=== PATIENT | male | born 1985 | race American Indian/Alaskan Native ===

== ENCOUNTER 2020-09-24 16:24 | Emergency (ER) | payer BC ==
--- NOTE | 2020-09-24 17:00 | Event Note ---
ED Screening Note ED Screening Note: CP and SOB that began in june but has worsened in the last couple of days states that the it spreads around the chest but is currently in the subternal region states it is worse with movement and worse with pressure states that he gets pain in his left arm no fever no n/v/d no cough no swelling states he had COVID 19 on aug 21 was in [place], [place] at that time states he went to a housekeeper manager in June and had a stress test and echo, states "there were no concerning findings" hx of HTN states he takes amlodipine, metoprolol, and 81 mg of aspirin states he was changed last week from amlodipine to lorsatan by his housekeeper manager and has been feeling "sick since then" states his housekeeper manager his in [facility] no allergies to meds This initial assessment/diagnostic orders/clinical plan/treatment(s) is/are subject to change based on patients health status, clinical progression and re- assessment by fellow clinical providers in the ED. Further treatment and workup at subsequent clinical providers discretion. Patient/guardian urged not to elope from the ED as their condition may be serious if not clinically assessed and managed. Initial orders include: CP protocol
--- NOTE | 2020-09-24 17:45 | XRay Report ---
CHEST 2 VIEWS INDICATION / CLINICAL INFORMATION: Chest Pain. Shortness of breath. History of Covid 19 1 month ago. COMPARISON: None available. FINDINGS: SUPPORT DEVICES: None. HEART / MEDIASTINUM: No significant abnormality. LUNGS / PLEURA: Clear lungs. No significant pleural effusion. No pneumothorax. ADDITIONAL FINDINGS: No significant additional findings. IMPRESSION: 1. No acute abnormality of the chest. Signer Name: Justyn Wooten MD Signed: 09/24/2020 5:41 PM Workstation Name: [id number]
[2020-09-24 17:57] LABS: Basophils # (Auto) 0.1 K/mm3 (0.0-0.1); Basophils % (Auto) 0.6 % (0.0-1.8); Eosinophils # (Auto) 0.1 K/mm3 (0.0-0.4); Eosinophils % (Auto) 0.8 % (0.0-4.3); Hematocrit 45.4 % (35.5-45.6); Hemoglobin 15.6 gm/dl (11.8-15.2); Lymphocytes # (Auto) 3.6 K/mm3 (1.2-5.4); Lymphocytes % (Auto) 39.3 % (13.4-35.0); Mean Corpuscular HGB Conc 34 % (32-34); Mean Corpuscular Volume 100 fl (84-94); Monocytes # (Auto) 1.2 K/mm3 (0.0-0.8); Monocytes % (Auto) 12.8 % (0.0-7.3); Platelet Count 198 K/mm3 (140-440); Red Blood Count 4.56 M/mm3 (3.65-5.03)
[2020-09-24] MEDS ORDERED: ACETAMINOPHEN 500 MG TAB PO ONE (18:15)
[2020-09-24] MEDS ORDERED: FAMOTIDINE 20 MG TAB PO ONE (18:15)
[2020-09-24] MEDS ORDERED: IBUPROFEN 400 MG TAB PO ONE (18:15)
[2020-09-24 18:18] LABS: Alanine Aminotransferase 43 units/L (7-56); Albumin 4.1 g/dL (3.9-5); BUN/Creatinine Ratio 20; Blood Urea Nitrogen 16 mg/dL (9-20); Calcium 9.2 mg/dL (8.4-10.2); Hemolysis Index 10
--- NOTE | 2020-09-24 18:22 | Emergency Department Report ---
ED General Adult HPI - General Chief complaint: Chest Pain Stated complaint: CHEST PAIN/SOB PUI?: No Time Seen by Provider: 09/24/20 16:50 Source: patient, RN notes reviewed Mode of arrival: Ambulatory Limitations: No Limitations - History of Present Illness Initial comments: The patient was evaluated in the emergency department for symptoms described in the history of present illness. He/she was evaluated in the context of the global COVID-19 pandemic, which necessitated consideration that the patient might be at risk for infection with the virus that causes COVID-19. Institutional protocols and algorithms that pertain to the evaluation of patients at risk for COVID-19 are in a state of rapid change based on informati on released by regulatory bodies including the CDC and federal and state organizations. These policies and algorithms were followed during the patient's care in the emergency department. Please note that these policies, procedures and recommendations changed on a rapid basis. The patient is a 35-year-old gentleman. He is not known to myself previously. He has a history of hypertension. He was reportedly seen by a local prism inspector in [facility], where he lives, where he reports having had a negative stress test and unremarkable echocardiogram. The patient presents today with a complaint of nontraumatic chest pain and shortness of breath. The symptoms have been present intermittently since June. Sometimes the chest pain is left-sided, sometimes it is right-sided, today it is epigastric. This pain has been present for a few days. It does not radiate to the back, arms or neck. There is no vomiting diaphoresis. The shortness of breath is not exertional. He reports he was diagnosed with COVID-19 in the beginning of August, and then had a negative test towards the middle of August. He denies headache, neck pain, abdominal pain. He endorses subjective left arm traumatic area hyperpigmentation on the left volar aspect of his forearm. This is new over the past couple weeks. He takes aspirin on a daily basis. He came to [place] because his family "wanted to see me, and get checked out." -: Gradual, week(s), month(s) Location: chest, left, upper extremity Radiation: non-radiation Severity scale (0 -10): 8 Quality: aching Consistency: intermittent Improves with: none Worsens with: none - Related Data Previous Rx's Medication Instructions Recorded Last Taken Type Acetaminophen [Non-Aspirin Extra 500 mg PO Q6HR PRN #30 tablet 09/24/20 Unknown Rx Strength] Aspirin [Aspirin BABY CHEW TAB] 81 mg PO QDAY #30 tab.chew 09/24/20 Unknown Rx Famotidine [Pepcid] 20 mg PO BID #60 tablet 09/24/20 Unknown Rx Ibuprofen [Motrin] 400 mg PO Q8H PRN #30 tablet 09/24/20 Unknown Rx Allergies Allergy/AdvReac Type Severity Reaction Status Date / Time No Known Allergies Allergy Unverified 09/24/20 16:45 ED Review of Systems ROS: Stated complaint: CHEST PAIN/SOB Other details as noted in HPI Constitutional: denies: fever, malaise, weakness Eyes: denies: eye discharge ENT: denies: congestion Respiratory: shortness of breath. denies: cough Cardiovascular: chest pain Gastrointestinal: denies: abdominal pain, nausea, vomiting, hematemesis, melena, hematochezia Musculoskeletal: myalgia Skin: rash, lesions Neurological: weakness Hematological/Lymphatic: denies: easy bleeding ED Past Medical Hx - Past Medical History Previous Medical History?: Yes Hx Hypertension: Yes - Surgical History Past Surgical History?: No - Social History Smoking Status: Never Smoker Substance Use Type: None - Medications Home Medications: Home Medications Medication Instructions Recorded Confirmed Last Taken Type Acetaminophen [Non-Aspirin Extra 500 mg PO Q6HR PRN #30 tablet 09/24/20 Unknown Rx Strength] Aspirin [Aspirin BABY CHEW TAB] 81 mg PO QDAY #30 tab.chew 09/24/20 Unknown Rx Famotidine [Pepcid] 20 mg PO BID #60 tablet 09/24/20 Unknown Rx Ibuprofen [Motrin] 400 mg PO Q8H PRN #30 tablet 09/24/20 Unknown Rx ED Physical Exam - General Limitations: No Limitations General appearance: alert, in no apparent distress - Head Head exam: Present: atraumatic, normocephalic - Eye Eye exam: Present: normal appearance, EOMI. Absent: nystagmus - ENT ENT exam: Present: normal exam, normal orophraynx, mucous membranes moist, normal external ear exam - Neck Neck exam: Present: normal inspection, full ROM. Absent: tenderness, meningismus - Respiratory Respiratory exam: Present: normal lung sounds bilaterally. Absent: respiratory distress, wheezes, rales, rhonchi, stridor, decreased breath sounds - Cardiovascular Cardiovascular Exam: Present: regular rate, normal rhythm, normal heart sounds. Absent: bradycardia, tachycardia, irregular rhythm, systolic murmur, diastolic murmur, rubs, gallop - GI/Abdominal GI/Abdominal exam: Present: soft, normal bowel sounds. Absent: distended, tenderness, guarding, rebound, rigid, pulsatile mass - Rectal Rectal exam: Present: deferred - Extremities Exam Extremities exam: Present: normal inspection (There is a nontender oval-shaped m acule noted, nonblanching, on the proximal volar left forearm.), full ROM, other (2+ pulses noted in the bilateral upper and lower extremities. There is no palpable cord. negative Homans sign. Muscular compartments are soft. The pelvis is stable.). Absent: pedal edema, calf tenderness - Back Exam Back exam: Present: normal inspection. Absent: tenderness, CVA tenderness (R), CVA tenderness (L), paraspinal tenderness, vertebral tenderness - Neurological Exam Neurological exam: Present: alert, other (No facial droop. Tongue midline. Extraocular movements intact bilaterally. Facial sensation intact to light t ouch in V1, V2, V3 distribution bilaterally. 5 and a 5 strength in 4 extremities. Sensation intact to light touch in 4 extremities.). Absent: motor sensory deficit - Psychiatric Psychiatric exam: Present: normal affect, normal mood - Skin Skin exam: Present: warm, dry, intact, other (Nontender nonblanching macule note d on the left volar proximal forearm, and left lower quadrant anterior abdominal wall) ED Course Vital Signs 09/24/20 09/24/20 09/24/20 16:45 17:51 18:45 Temperature 98.4 F Pulse Rate 84 69 78 Respiratory 18 18 16 Rate Blood Pressure 115/77 Blood Pressure 130/79 121/83 [Right] O2 Sat by Pulse 97 98 98 Oximetry 09/24/20 19:00 Temperature 98.3 F Pulse Rate 68 Respiratory 18 Rate Blood Pressure Blood Pressure 129/84 [Right] O2 Sat by Pulse 100 Oximetry - Reevaluation(s) Reevaluation #1: 09/24/20 18:21 Differential diagnosis, including but not limited to: GERD, gastritis, hiatal hernia, pneumonia, coronary artery disease, pulmonary embolism, Covid cardiomyopathy, Covid lung Assessment and plan: 35-year-old gentleman, who is not currently tachycardic, tachypneic or hypoxic, who denies DVT and pulmonary embolism risk factors, who is low risk by Wells criteria for pulmonary embolism, PERC negative, complaint of chest pain since June. Given propensity for Covid to cause thromboembolic symptomatology, and left axis deviation with LAFB on EKG, we will send D-dimer to risk ratified for pulmonary embolism, although I find the patient to be low pretest probability. Patient has equal pulses in the upper and lower extremities, no pulsatile abdominal mass, and an unremarkable x-ray of the chest, therefore, aortic disease is very unlikely. Patient at low risk for major adverse cardiac event as per heart score. Given history and physical, do not have a high suspicion for GERD, gastritis, hiatal hernia at this time. Pneumonia is unlikely given history, physical, I find coronary artery disease of significance to be unlikely. As per this institutions policy, procedure, protocol, patient's information is transmitted to [facility] cardiology, whereby patient should be contacted within the next 2 days to arrange close outpatient follow-up We will also treat the patient's symptoms and reassess once his initial data points have resulted. Reevaluation #2: 09/24/20 20:23 Troponin negative x2. EKG unchanged x2. D-dimer negative. Chest x-ray unremarkable. Patient resting comfortably and in no acute distress. Counseled patient on significance of findings, we recommended follow-up with an outpatient primary care doctor or prism inspector. He has verbalized understanding. ED Medical Decision Making - Lab Data Result diagrams: 09/24/20 17:35 09/24/20 17:35 Lab Results 09/24/20 09/24/20 09/24/20 Range/Units 17:35 17:35 17:35 WBC 9.1 (4.5-11.0) K/mm3 RBC 4.56 (3.65-5.03) M/mm3 Hgb 15.6 H (11.8-15.2) gm/dl Hct 45.4 (35.5-45.6) % MCV 100 H (84-94) fl MCH 34 H (28-32) pg MCHC 34 (32-34) % RDW 15.0 (13.2-15.2) % Plt Count 198 (140-440) K/mm3 Lymph % (Auto) 39.3 H (13.4-35.0) % Kidder % (Auto) 12.8 H (0.0-7.3) % Eos % (Auto) 0.8 (0.0-4.3) % Baso % (Auto) 0.6 (0.0-1.8) % Lymph # (Auto) 3.6 (1.2-5.4) K/mm3 Kidder # (Auto) 1.2 H (0.0-0.8) K/mm3 Eos # (Auto) 0.1 (0.0-0.4) K/mm3 Baso # (Auto) 0.1 (0.0-0.1) K/mm3 Seg Neutrophils % 46.5 (40.0-70.0) % Seg Neutrophils # 4.3 (1.8-7.7) K/mm3 Sodium 137 (137-145) mmol/L Potassium 4.4 (3.6-5.0) mmol/L Chloride 102.9 (98-107) mmol/L Carbon Dioxide 29 (22-30) mmol/L Anion Gap 10 mmol/L BUN 16 (9-20) mg/dL Creatinine 0.8 (0.8-1.3) mg/dL Estimated GFR > 60 ml/min BUN/Creatinine Ratio 20 % Glucose 98 (75-100) mg/dL Calcium 9.2 (8.4-10.2) mg/dL Total Bilirubin 0.30 (0.1-1.2) mg/dL AST 14 (5-40) units/L ALT 43 (7-56) units/L Alkaline Phosphatase 78 (35-129) units/L Troponin T < 0.010 (0.00-0.029) ng/mL NT-Pro-B Natriuret Pep 83.25 (0-450) pg/mL Total Protein 7.0 (6.3-8.2) g/dL Albumin 4.1 (3.9-5) g/dL Albumin/Globulin Ratio 1.4 % Lab Results 09/24/20 09/24/20 09/24/20 Range/Units 17:35 17:35 17:35 WBC 9.1 (4.5-11.0) K/mm3 RBC 4.56 (3.65-5.03) M/mm3 Hgb 15.6 H (11.8-15.2) gm/dl Hct 45.4 (35.5-45.6) % MCV 100 H (84-94) fl MCH 34 H (28-32) pg MCHC 34 (32-34) % RDW 15.0 (13.2-15.2) % Plt Count 198 (140-440) K/mm3 Lymph % (Auto) 39.3 H (13.4-35.0) % Kidder % (Auto) 12.8 H (0.0-7.3) % Eos % (Auto) 0.8 (0.0-4.3) % Baso % (Auto) 0.6 (0.0-1.8) % Lymph # (Auto) 3.6 (1.2-5.4) K/mm3 Kidder # (Auto) 1.2 H (0.0-0.8) K/mm3 Eos # (Auto) 0.1 (0.0-0.4) K/mm3 Baso # (Auto) 0.1 (0.0-0.1) K/mm3 Seg Neutrophils % 46.5 (40.0-70.0) % Seg Neutrophils # 4.3 (1.8-7.7) K/mm3 Sodium 137 (137-145) mmol/L Potassium 4.4 (3.6-5.0) mmol/L Chloride 102.9 (98-107) mmol/L Carbon Dioxide 29 (22-30) mmol/L Anion Gap 10 mmol/L BUN 16 (9-20) mg/dL Creatinine 0.8 (0.8-1.3) mg/dL Estimated GFR > 60 ml/min BUN/Creatinine Ratio 20 % Glucose 98 (75-100) mg/dL Calcium 9.2 (8.4-10.2) mg/dL Total Bilirubin 0.30 (0.1-1.2) mg/dL AST 14 (5-40) units/L ALT 43 (7-56) units/L Alkaline Phosphatase 78 (35-129) units/L Troponin T < 0.010 (0.00-0.029) ng/mL NT-Pro-B Natriuret Pep 83.25 (0-450) pg/mL Total Protein 7.0 (6.3-8.2) g/dL Albumin 4.1 (3.9-5) g/dL Albumin/Globulin Ratio 1.4 % - EKG Data -: EKG Interpreted by Ok EKG shows normal: sinus rhythm Rate: normal - EKG Data When compared to previous EKG there are: previous EKG unavailable 09/24/20 18:22 Sinus rhythm, 77 bpm. Left axis deviation, left anterior fascicular block. High left ventricular voltage. Intervals within normal limits. This is an abnormal EKG. This is not a STEMI. - Radiology Data Radiology results: pending, report reviewed, image reviewed Critical care attestation.: If time is entered above; I have spent that time in minutes in the direct care of this critically ill patient, excluding procedure time. ED Disposition Clinical Impression: Chronic chest pain, Dyspnea, History of COVID-19 Disposition: - TO HOME OR SELFCARE Is pt being admited?: No Does the pt Need Aspirin: No Condition: Good Instructions: Chest Pain (ED), Nonspecific Chest Pain, Adult, Shortness of Breath, Adult, COVID-19 Additional Instructions: Please continue current outpatient medications. Please follow-up with a primary care doctor or prism inspector within the next [address] Perez Is a local primary care doctor. Dr. Oscar is a local prism inspector. Patient may follow-up with an outpatient life scientists, such as Dr. Eckert, Within the next 4 to 6 weeks, or an outpatient primary care doctor for his complaint of shortness of breath. Patient may take the prescribed pain medications as needed and directed. Please return to the emergency room right away with new pain, worsened pain, migration of pain, projectile vomiting, change in mental status, confusion, inability to tolerate liquid feeds, new, worsened or different symptoms not present on the initial emergency room evaluation. Referrals: LEONARDO PEREZ MD [Staff Physician] - 3-5 Days ANNELISE ECKERT MD [Staff Physician] - 3-5 Days DANIEL CATES MD [Staff Physician] - 3-5 Days Forms: Work/School Release Form(ED) Heart Score - HEART Score History: Slightly suspicious EKG: Non-specific Age: < 45 Risk factors: 1-2 risk factors Troponin: < normal limit HEART Score: 2 - Critical Actions Critical Actions: 0-3 pts:0.9-1.7%risk of adverse cardiac event.Candidate for discharge
[2020-09-24 19:47] VITALS: BP 129/84
== END 2020-09-24 20:35 | disposition home or self-care (01) ==
LOC: ED 16:24
DX: R07.89 Other chest pain (principal); Z20.822 Contact with and (suspected) exposure to COVID-19; R06.00 Dyspnea, unspecified; I10 Essential (primary) hypertension; Z79.1 Long term (current) use of non-steroidal anti-inflammatories (NSAID); Z79.899 Other long term (current) drug therapy
CPT/HCPCS: 36415; 71046; 80053; 82550; 83735; 83880; 84484; 85025; 85379; 93005

== ENCOUNTER 2020-11-06 08:26 | Emergency (ER) | payer BC ==
[2020-11-06] MEDS ORDERED: ASPIRIN 325 MG TAB PO ONE (08:50)
--- NOTE | 2020-11-06 09:19 | XRay Report ---
CHEST 2 VIEWS INDICATION / CLINICAL INFORMATION: cp. COMPARISON: 09/24/2020 FINDINGS: SUPPORT DEVICES: None. HEART / MEDIASTINUM: No significant abnormality. LUNGS / PLEURA: No significant pulmonary or pleural abnormality. No pneumothorax. ADDITIONAL FINDINGS: No significant additional findings. IMPRESSION: 1. No acute findings. Signer Name: Arnaldo Cali MD Signed: 11/06/2020 9:14 AM Workstation Name: [id number]
--- NOTE | 2020-11-06 09:23 | Emergency Department Report ---
ED Chest Pain HPI - General Chief Complaint: Chest Pain Stated Complaint: CHEST PAIN/SOB Time Seen by Provider: 11/06/20 09:07 Source: patient Mode of arrival: Ambulatory Limitations: No Limitations - History of Present Illness Initial Comments: 35-year-old male, history of hypertension, presents to ED with chest pain. Patient states chest pain has been off and on since June 2020. Patient states he has had multiple ED visits, seeing a optical instrument assembly supervisor and also a cage operator since that time. Patient reports work-ups have always been negative. Patient states he had a normal echo, negative stress test. Patient states he had a "walking test "when he was seen by the cage operator and that too was normal. Patient reports he had COVID-19 in August 2020. Patient reports pain is sharp in nature, located in upper left chest wall, also with sha rp pain in the left arm as well. He also reports shortness of breath last night. Patient states chest pain worse over the past week. Occurs at rest. Patient denies any leg swelling, fever, cough nausea or vomiting, diaphoresis. MD Complaint: chest pain -: month(s) (4) Onset: during rest Pain Location: left chest Pain Radiation: LUE Severity: moderate Quality: sharp Consistency: intermittent Improves With: nothing Worsens With: nothing re: dyspnea. denies: nausea, vomting, diaphoresis Other Symptoms: denies: cough, fever, syncope, leg swelling Treatments Prior to Arrival: none - Related Data Previous Rx's Medication Instructions Recorded Last Taken Type Acetaminophen [Non-Aspirin Extra 500 mg PO Q6HR PRN #30 tablet 09/24/20 Unknown Rx Strength] Aspirin [Aspirin BABY CHEW TAB] 81 mg PO QDAY #30 tab.chew 09/24/20 Unknown Rx Famotidine [Pepcid] 20 mg PO BID #60 tablet 09/24/20 Unknown Rx Ibuprofen [Motrin] 400 mg PO Q8H PRN #30 tablet 09/24/20 Unknown Rx Allergies Allergy/AdvReac Type Severity Reaction Status Date / Time No Known Allergies Allergy Unverified 09/24/20 16:45 Heart Score - HEART Score History: Slightly suspicious EKG: Normal Age: < 45 Risk factors: 1-2 risk factors Troponin: < normal limit HEART Score: 1 ED Review of Systems ROS: Stated complaint: CHEST PAIN/SOB Other details as noted in HPI Comment: All other systems reviewed and negative Constitutional: denies: chills, fever Respiratory: shortness of breath. denies: cough Cardiovascular: chest pain ED Past Medical Hx - Past Medical History Hx Hypertension: Yes - Surgical History Past Surgical History?: No - Social History Smoking Status: Never Smoker Substance Use Type: None - Medications Home Medications: Home Medications Medication Instructions Recorded Confirmed Last Taken Type Acetaminophen [Non-Aspirin Extra 500 mg PO Q6HR PRN #30 tablet 09/24/20 Unknown Rx Strength] Aspirin [Aspirin BABY CHEW TAB] 81 mg PO QDAY #30 tab.chew 09/24/20 Unknown Rx Famotidine [Pepcid] 20 mg PO BID #60 tablet 09/24/20 Unknown Rx Ibuprofen [Motrin] 400 mg PO Q8H PRN #30 tablet 09/24/20 Unknown Rx ED Physical Exam - General Limitations: No Limitations General appearance: alert, in no apparent distress - Head Head exam: Present: atraumatic, normocephalic - Eye Eye exam: Present: normal appearance, EOMI - ENT ENT exam: Present: mucous membranes moist - Neck Neck exam: Present: normal inspection - Respiratory Respiratory exam: Present: normal lung sounds bilaterally. Absent: respiratory distress - Cardiovascular Cardiovascular Exam: Present: regular rate, normal rhythm - GI/Abdominal GI/Abdominal exam: Present: soft. Absent: distended, tenderness - Extremities Exam Extremities exam: Present: normal inspection. Absent: pedal edema, calf tenderness - Neurological Exam Neurological exam: Present: alert, oriented X3 - Psychiatric Psychiatric exam: Present: normal affect, normal mood - Skin Skin exam: Present: warm, dry, intact, normal color ED Course Vital Signs 11/06/20 11/06/20 11/06/20 08:30 08:40 09:36 Temperature 98.9 F 98.8 F Pulse Rate 71 70 67 Respiratory 20 18 18 Rate Blood Pressure 112/79 112/79 Blood Pressure [Right] O2 Sat by Pulse 100 99 98 Oximetry 11/06/20 11/06/20 11/06/20 09:39 09:45 10:01 Temperature Pulse Rate 70 73 71 Respiratory 18 17 13 Rate Blood Pressure 111/77 111/77 Blood Pressure 111/77 [Right] O2 Sat by Pulse 97 97 98 Oximetry 11/06/20 11/06/20 11/06/20 10:15 10:31 10:45 Temperature Pulse Rate 69 65 69 Respiratory 19 17 21 Rate Blood Pressure 106/73 106/73 113/77 Blood Pressure [Right] O2 Sat by Pulse 98 100 100 Oximetry 11/06/20 11/06/20 11:01 11:15 Temperature Pulse Rate 74 68 Respiratory 13 18 Rate Blood Pressure 113/77 112/78 Blood Pressure [Right] O2 Sat by Pulse 100 98 Oximetry ED Medical Decision Making - Lab Data Result diagrams: 11/06/20 09:18 11/06/20 09:21 - EKG Data -: EKG Interpreted by Ar EKG shows normal: sinus rhythm, axis, intervals, QRS complexes, ST-T waves Rate: normal - EKG Data Interpretation: no acute changes - Radiology Data Radiology results: report reviewed, image reviewed - Medical Decision Making 35-year-old male presents to ED with chest pain, intermittent, since June 2020. Patient reports that he has been seen multiple times by cardiology and pulmonology for his symptoms. Patient has had normal work-ups by both services. Today, EKG is normal, D-dimer is within normal limits, chest x-ray is unremarkable, and troponin is normal. Vital signs are stable. Patient is pain- free at this time. Outpatient follow-up with PCP advised. Return precautions given. - Differential Diagnosis Atypical chest pain, ACS, pneumonia, PE Critical care attestation.: If time is entered above; I have spent that time in minutes in the direct care of this critically ill patient, excluding procedure time. ED Disposition Clinical Impression: Chest pain Disposition: DC-01 TO HOME OR SELFCARE Is pt being admited?: No Condition: Stable Instructions: Nonspecific Chest Pain, Adult Referrals: [facility] [Provider Group] - 3-5 Days LEONARDO LARRY MD [Staff Physician] - 3-5 Days ISHAN CHAUHAN MD [Staff Physician] - 3-5 Days Time of Disposition: 10:55
[2020-11-06 10:10] LABS: Basophils # (Auto) 0.1 K/mm3 (0.0-0.1); Eosinophils % (Auto) 0.9 % (0.0-4.3); Hematocrit 44.5 % (35.5-45.6); Hemoglobin 15.4 gm/dl (11.8-15.2); Lymphocytes # (Auto) 1.5 K/mm3 (1.2-5.4); Lymphocytes % (Auto) 26.1 % (13.4-35.0); Mean Corpuscular HGB Conc 35 % (32-34); Mean Corpuscular Volume 95 fl (84-94); Monocytes # (Auto) 0.5 K/mm3 (0.0-0.8); Monocytes % (Auto) 9.3 % (0.0-7.3); Platelet Count 185 K/mm3 (140-440); Red Blood Count 4.68 M/mm3 (3.65-5.03); Red Cell Distribution Width 14.9 % (13.2-15.2)
[2020-11-06 10:50] LABS: BUN/Creatinine Ratio 11; Blood Urea Nitrogen 10 mg/dL (9-20); Calcium 9.2 mg/dL (8.4-10.2); Hemolysis Index 25
[2020-11-06 11:27] VITALS: BP 112/78
--- NOTE | 2020-11-08 11:09 | Electrocardiograph Report ---
[facility] Test Date: 2020-11-06 Test Time: 08:36:20 Pat Name: MAURILIO GREEN Department: Room: Gender: M University Librarian: FAITH : 1985 Requested By: KARMEN HOOKER Order Number: [id number] Reading MD: uJni Cannon Measurements Intervals [place] Rate: 62 P: 22 TX: 188 QRS: 4 QRSD: 84 T: 8 QT: 389 QTc: 395 Interpretive Statements Sinus rhythm No previous ECG available for comparison Electronically Signed On 11-08-2020 8:08:41 PDT by Juni Cannon
== END 2020-11-06 11:26 | disposition home or self-care (01) ==
LOC: ED 08:26
DX: R07.89 Other chest pain (principal); I10 Essential (primary) hypertension; Z79.82 Long term (current) use of aspirin; Z79.899 Other long term (current) drug therapy
CPT/HCPCS: 36415; 71046; 80048; 84484; 85025; 85379; 93005